=== PATIENT | male | born 1990 | race Caucasian/White ===

== ENCOUNTER 2017-03-25 00:03 | Emergency (ER) | payer OTHER ==
[~2017-03-25] VITALS: Ht 190.5 cm; Wt 89.8 kg
--- NOTE | 2017-03-25 00:20 | RAD ---
INDICATION: CODE STROKE; lt.side facial drooping; loss of vision left eye; migraine headache COMPARISON: None. TECHNIQUE: Axial CT images obtained through the head without intravenous contrast. One or more of the following individualized dose reduction techniques were utilized for this examination: 1. Automated exposure control; 2. Adjustment of the mA and/or kV according to patient size; 3. Use of iterative reconstruction technique. FINDINGS: No intracranial hemorrhage. No midline shift. Basal cisterns patent. Ventricles and sulci are unremarkable. No acute osseous abnormality. Orbits and paranasal sinuses unremarkable. IMPRESSION: 1. No acute intracranial hemorrhage. Report called to the ER at 12:15 AM on date of exam Electronically signed by: Rashaun Marti MD (03/25/2017 12:17 AM) [facility]
[2017-03-25 01:00] LABS: BASO % 0 % (0-3); EOS % 2 % (0-3); HEMATOCRIT 45.8 % (39.0-53.0); HEMOGLOBIN 15.4 g/dL (13.0-17.5); LYMPH # 1.6 x10^3/uL (1.0-4.8); LYMPH % 20 % (24-48); MEAN CORPUSCULAR HEMOGLOBIN 29 pg (25-35); MEAN CORPUSCULAR HGB CONC 34 g/dL (31-37); MEAN CORPUSCULAR VOLUME 86 fL (79-100); MONO % 14 % (0-9); NEUT % 64 % (31-73); PLATELET COUNT 181 x10^3/uL (140-400); RED BLOOD COUNT 5.35 x10^6/uL (4.30-5.70); RED CELL DISTRIBUTION WIDTH 13.7 % (11.5-14.5); WHITE BLOOD COUNT 7.8 x10^3/uL (4.0-11.0)
[2017-03-25] MEDS ORDERED: ONDANSETRON PF 4 MG/2 ML VIAL. IV ONE (01:00)
[2017-03-25] MEDS ORDERED: HYDROmorphone 2 MG/ML VIAL IV ONE (01:00)
[2017-03-25] MEDS ORDERED: IV NORMAL SALINE 1000ML BAG 1,000 ML IV ONE ×2 (01:00→01:30)
[2017-03-25 01:10] LABS: CALCIUM 9.2 mg/dL (8.5-10.1); INR 1.1 (0.8-1.1); POTASSIUM 3.6 mmol/L (3.5-5.1); PROTHROMBIN TIME PATIENT 13.2 SEC (11.7-14.0)
[2017-03-25 01:17] LABS: ALBUMIN 3.9 g/dL (3.4-5.0); TOTAL BILIRUBIN 0.2 mg/dL (0.2-1.0); TOTAL PROTEIN 7.7 g/dL (6.4-8.2)
[2017-03-25] MEDS ORDERED: KETOROLAC TROMETHAMINE 30 MG/ML INJ. ONE (01:29)
[2017-03-25] MEDS ORDERED: KETOROLAC 15 MG/ML VIAL. IV ONE (01:30)
[2017-03-25] MEDS ORDERED: VALPROIC ACID (AS SODIUM SALT) 500 MG in IV NORMAL SALINE 50ML 50 ML IV ONE (01:30)
--- NOTE | 2017-03-25 01:44 | PHYS DOC ---
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 Patient's last known well was at noon time on March 24. Patient reports he started developing a migraine which he has had since he was 6 years old. Patient reports around noontime the migraine started and he went to sleep feeling normal. Patient reports she woke up multiple times between noon time and 5 PM secondary to his headache nausea and vomiting. Patient reports when he woke up he noticed blurred and decreased vision out of his left eye. Patient thought that that might be related to his migraine started 1 back to sleep. Patient reports that approximate 9 PM he woke up got out of bed and went down to the patellae get his medication during which time he went to the clinic at the facility to complain of his migraine and is visual changes. Upon presentation to the clinic the patient was transferred to [facility] for further evaluation of his symptoms. Patient reports he had some dizziness and lightheadedness at the time. Patient has any cough nausea chest pain or abdominal pain. Patient reports he did have multiple episodes of vomiting which is typical for his migraines. Denies any history of diabetes liver longer kidney problems. Prior surgeries. Patient denies any weakness or numbness to his upper or lower extremities although he did endorse some paresthesia of his left upper extremity to the nurse. Patient denies any slurring of speech. Patient denies any numbness or paresthesias to his face. Patient's family history significant for an aunt that has multiple sclerosis. Patient's history significant for migraines although he reports she's never had any symptomatology other than headaches with his migraines. Patient denies any history of complex migraines in the past. Patient's physical exam is significant for 1. Cranial nerves II-12 intact except for decreased adduction of his left eye. Patient has diplopia upon right lateral gaze. Patient has no double vision upon left lateral gaze. Patient's left eye crosses midline but does not go all the way nose. 2. Patient's pupils were equally round and reactive to light. Extraocular motions were as above. Patient's funduscopic exam was normal. Patient reports decreased vision out of his left eye. Patient reports he is able to discern light and dark. Patient is able to see fingers and objects. Patient reports that he feels that there is bundle rapid front of his left eye that he is looking through. 3. Patient has 5 out of 5 strength in his upper and lower semis bilaterally. 4. Patient's tongue is midline. Patient's able to blow his cheeks out with any problems. Patient's forehead is not affected. Patient has no facial droop. 5. Sensation to his upper or lower extremities were normal. Patient was able to have sensation to light touch to his upper and lower extremities equally. Patient's ER workup is been significant for a CT scan of his head which was unremarkable. Patient's Accu-Chek was 95. Review of systems: Constitutional: Denies fever or chills Eyes: Denies change in visual acuity, redness, or eye pain HENT: Denies nasal congestion or sore throat All other review systems are negative except as documented in the history of present illness portion. Physical exam: Constitutional: Well developed, well nourished, no acute distress, non-toxic appearance. HENT: Normocephalic, atraumatic, bilateral external ears normal, oropharynx moist, no oral exudates, nose normal. Eyes: PERRLA, EOMI, conjunctiva normal, no discharge. Neck: Normal range of motion, no tenderness, supple, no stridor Cardiovascular:Heart rate regular rhythm Lungs & Thorax: Bilateral breath sounds clear to auscultation Abdomen: Bowel sounds normal, soft, no tenderness, no masses, Skin: Warm, dry, no erythema, no rash. Back: No tenderness, no CVA tenderness. Extremities: No tenderness, no cyanosis, no clubbing, ROM intact, no edema. Neurologic: Alert and oriented X 3, see above Psychologic: Affect normal, judgement normal, mood normal. 1. Abnormal neurological exam with decreased vision of his left eye with diplopia upon right lateral gaze with inability to adduct his left eye. Given the symptoms were concerned about intranuclear ophthalmoplegia versus complex migraine versus stroke versus aneurysm versus multiple sclerosis. I have discussed the case with the [facility] transfer line and they've assist this was transferring patient to [facility] for further evaluation. Prior to calling [facility] and did have a discussion with our neurologist Dr. Agudelo who has recommended transfer secondary to her inability to obtain an MRI at our hospital secondary to it being out of order. Spoke with Dr. vegas who is the neurologist oncology nurse navigator and she is assisted with management of this care and she is agreed to assist us with care for this patient at [facility]. She is recommended that we aggressively treat his migraines with Toradol and Depakote as well as IV fluids. Patient has already been given Dilaudid and Zofran as well. Patient is currently stable for transfer to [facility] for further evaluation. Current Medications Current Medications Current Medications Medications (Trade) Dose Ordered Sig/Andres Start Time Stop Time Status Last Admin Dose Admin Hydromorphone HCl (Dilaudid) 1 mg 1X ONCE 03/25/17 01:00 03/25/17 01:01 DC 03/25/17 01:06 1 MG Ketorolac Tromethamine (Toradol) 30 mg 1X ONCE 03/25/17 01:30 03/25/17 01:31 DC Ondansetron HCl (Zofran) 4 mg 1X ONCE 03/25/17 01:00 03/25/17 01:01 DC 03/25/17 01:05 4 MG Sodium Chloride 1,000 ml @ 1,000 mls/hr 1X ONCE 03/25/17 01:30 03/25/17 02:29 Valproic Acid 500 mg/Sodium Chloride 55 ml @ 100 mls/hr 1X ONCE 03/25/17 01:30 03/25/17 02:02 Allergies Allergies Allergies Coded Allergies Type Severity Reaction Last Updated Verified No Known Drug Allergies 03/25/17 No Current Patient Data Vital Signs Vital Signs Date Time Temp Pulse Resp B/P (MAP) Pulse Ox O2 Delivery O2 Flow Rate FiO2 03/25/17 01:19 56 142/78 (99) 100 Room Air 03/25/17 01:06 16 03/25/17 00:10 98.6 98.6 Lab Values Laboratory Tests Test 03/25/17 00:17 03/25/17 00:56 White Blood Count 7.8 x10^3/uL (4.0-11.0) Red Blood Count 5.35 x10^6/uL (4.30-5.70) Hemoglobin 15.4 g/dL (13.0-17.5) Hematocrit 45.8 % (39.0-53.0) Mean Corpuscular Volume 86 fL (79-100) Mean Corpuscular Hemoglobin 29 pg (25-35) Mean Corpuscular Hemoglobin Concent 34 g/dL (31-37) Red Cell Distribution Width 13.7 % (11.5-14.5) Platelet Count 181 x10^3/uL (140-400) Neutrophils (%) (Auto) 64 % (31-73) Lymphocytes (%) (Auto) 20 % (24-48) L Monocytes (%) (Auto) 14 % (0-9) H Eosinophils (%) (Auto) 2 % (0-3) Basophils (%) (Auto) 0 % (0-3) Neutrophils # (Auto) 5.0 x10^3uL (1.8-7.7) Lymphocytes # (Auto) 1.6 x10^3/uL (1.0-4.8) Monocytes # (Auto) 1.1 x10^3/uL (0.0-1.1) Eosinophils # (Auto) 0.2 x10^3/uL (0.0-0.7) Basophils # (Auto) 0.0 x10^3/uL (0.0-0.2) Prothrombin Time 13.2 SEC (11.7-14.0) Prothrombin Time INR 1.1 (0.8-1.1) Sodium Level 142 mmol/L (136-145) Potassium Level 3.6 mmol/L (3.5-5.1) Chloride Level 104 mmol/L (98-107) Carbon Dioxide Level 31 mmol/L (21-32) Anion Gap 7 (6-14) Blood Urea Nitrogen 8 mg/dL (8-26) Creatinine 1.0 mg/dL (0.7-1.3) Estimated GFR (Cockcroft-Gault) 91.0 BUN/Creatinine Ratio 8 (6-20) Glucose Level 124 mg/dL (70-99) H Calcium Level 9.2 mg/dL (8.5-10.1) Total Bilirubin 0.2 mg/dL (0.2-1.0) Aspartate Amino Transferase (AST) 17 U/L (15-37) Alanine Aminotransferase (ALT) 22 U/L (16-63) Alkaline Phosphatase 75 U/L (46-116) Total Protein 7.7 g/dL (6.4-8.2) Albumin 3.9 g/dL (3.4-5.0) Albumin/Globulin Ratio 1.0 (1.0-1.7) Glucose (Fingerstick) 95 mg/dL (70-99) Laboratory Tests 03/25/17 00:17 Laboratory Tests 03/25/17 00:17 EKG EKG EKG reveals normal sinus rhythm with nonspecific ST-T wave abnormalities. Heart rate of 53. No evidence of ST elevation [place]. [] Radiology/Procedures Radiology/Procedures [] Course & Med Decision Making Course & Med Decision Making Pertinent Labs and Imaging studies reviewed. (See chart for details) [] Dragon Disclaimer Dragon Disclaimer This electronic medical record was generated, in whole or in part, using a voice recognition dictation system. Departure Departure Impression: Primary Impression: Internuclear ophthalmoplegia Additional Impressions: Migraine headache Blurred vision Disposition: 05 TRANSFER OTHER Condition: IMPROVED Referrals: NO PCP (PCP) Problem Qualifiers SATYA LUNA MD Mar 25, 2017 01:44
[2017-03-25] MEDS ORDERED: KETOROLAC TROMETHAMINE 30 MG/ML INJ. IV ONE (01:45)
[2017-03-25 02:19] VITALS: BP 133/72
--- NOTE | 2017-03-25 06:15 | EKG ---
[facility] [address] [place] [address] Test Date: 2017-03-25 Test Time: 00:16:31 Pat Name: CROW MATOS Department: Room: Gender: M Cad Design Engineer: : 1990 Requested By: SATYA LUNA Order Number: [id number] Reading MD: Measurements Intervals [place] Rate: 53 P: 51 MA: 156 QRS: 72 QRSD: 88 T: 61 QT: 392 QTc: 370 Interpretive Statements SINUS RHYTHM RI6.01 Unconfirmed report No previous ECG available for comparison
--- NOTE | 2017-03-25 07:47 | RAD ---
Indication vision loss. Suspect CVA. Protocol study. A single view of the chest was obtained. No prior imaging of the chest is available. The heart, pulmonary vessels and mediastinum appear normal. The lungs are clear. There is no pleural fluid or pneumothorax and the visualized bony structures appear grossly intact. IMPRESSION: Normal single view of the chest
== END 2017-03-25 02:47 | disposition home or self-care (01) ==
LOC: ER 00:03 → EEVIPCON 00:03 → ER 02:47
DX: H51.22 Internuclear ophthalmoplegia, left eye (principal); G43.909 Migraine, unspecified, not intractable, without status migrainosus; H54.62 Unqualified visual loss, left eye, normal vision right eye; H53.2 Diplopia; I10 Essential (primary) hypertension
CPT/HCPCS: 36415; 70450; 71010; 80053; 82962; 85027; 85610; 93005; 96361; 96365; 96375; 99285; J1170; J1885; J2405; J7030